=== PATIENT | male | born 1955 | race Caucasian/White ===

== ENCOUNTER 2017-04-26 22:23 | Emergency (ER) | payer SELFPAY ==
[2017-04-26 22:29] VITALS: BP 138/85; PULSE 74; TEMP 98.8; BMI 26.6
[2017-04-26] MEDS ORDERED: SILVER SULFADIAZINE 1% TOP CREAM 50 GM JAR TP ONE (22:36)
--- NOTE | 2017-04-26 22:38 | PDOC ---
History of Present Illness - General Chief Complaint: Burn Stated Complaint: RT HAND BURN Time Seen by Provider: 04/26/17 22:27 History Source: Patient Exam Limitations: No Limitations - History of Present Illness Initial Comments: 04/26/17 22:39 This is a 61-year-old male who comes in complaining of a burn to his right hand. Patient was opening a pressure cooker that had finished cooking approximately an hour prior to opening it when some of the sauce sprayed onto his hand. Patient denied any other injuries. Patient's tetanus is up-to-date. PAST MEDICAL HISTORY: no significant history PAST SURGICAL HISTORY: no significant history FAMILY HISTORY: no pertinant history SOCIAL HISTORY: Pt lives with family and is employed. MEDICATIONS: reviewed ALLERGIES: As per nursing notes Review of Systems General: No fevers or chills, no weakness, no weight loss HEENT: No change in vision. No sore throat,. No ear pain CardioVascular: No chest pain or shortness of breath Respiratory:No cough, or wheezing. Gastrointestinal: no nausea, vomitting, diarrhea or constipation, No rectal bleeding Genitourinary: No dysuria, hematuria, or frequency Musculoskeletal right hand burn Neurologic: No headache, vertigo, dizziness or loss of consciousness Psychiatric: nor depression Skin: No rashes or easy bruising Endocrine: no increased thirst or abnormal weight change Allergic: no skin or latex allergy All other systems reviewed and normal GENERAL: The patient is awake, alert, and fully oriented, in no acute distress. HEAD: Normal with no signs of trauma. EYES: Pupils equal, round and reactive to light, extraocular movements intact, sclera anicteric, conjunctiva clear. EXTREMITIES: Right hand there is a first-degree burn to the palmar surface and part of the dorsum as well as a small area of the forearm that has erythema but no blistering or no sloughing of the skin. NEUROLOGICAL: Normal speech, normal gait. grossly intact PSYCH: Normal mood, normal affect. SKIN: Warm, Dry, normal turgor, no rashes or lesions noted. Assessment and plan: This is a 61-year-old male with a first-degree burn of his right hand. Patient's hand had Silvadene applied and a wrap. Patient was discharged home and told to follow-up with his primary care doctor as needed Past History - Past Medical History Allergies/Adverse Reactions: Allergies Allergy/AdvReac Type Severity Reaction Status Date / Time No Known Allergies Allergy Unverified 04/26/17 22:24 Home Medications: Ambulatory Orders NK [No Known Home Medication] 04/26/17 COPD: No - Immunization History Immunization Up to Date: Yes - Suicide/Smoking/Psychosocial Hx Smoking History: Never smoked Have you smoked in the past 12 months: No Information on smoking cessation initiated: No Hx Alcohol Use: No Drug/Substance Use Hx: No Substance Use Type: None *Physical Exam - Vital Signs Last Vital Signs Temp Pulse Resp BP Pulse Ox 98.8 F 74 20 138/85 100 04/26/17 22:23 04/26/17 22:23 04/26/17 22:23 04/26/17 22:23 04/26/17 22:23 *DC/Admit/Observation/Transfer Diagnosis at time of Disposition: Burn, hand, first degree Qualifiers: Encounter type: initial encounter Burn of hand location: multiple sites Laterality: right Qualified Code(s): T23.191A - Burn of first degree of multiple sites of right wrist and hand, initial encounter - Discharge Dispostion Disposition: HOME Admit: No - Referrals - Patient Instructions Printed Discharge Instructions: How to Take Care of a Burn, DI for [facility] Additional Instructions: The burn appears to be primarily first-degree burn. Symptoms and discomfort should resolve overnight. Tomorrow morning U can gently wipe off the burn cream and if there is any area where the skin has come off apply some antibiotic cream to that area otherwise you can leave the dressings off. Tylenol or Motrin as needed for pain overnight. Return to the emergency department immediately with ANY new, persistent or worsening symptoms. Continue any medications as previously prescribed by your physician. You should follow up with your primary doctor as soon as possible regarding today's emergency department visit. . Please make sure your doctor reviews the results of your emergency evaluation. Thank you for coming to the Emergency Department today for your care. It was a pleasure to see you today. Please note that your evaluation is INCOMPLETE until you follow-up with your doctor. - Post Discharge Activity
== END 2017-04-26 22:47 | disposition home or self-care (01) ==
LOC: FER 22:23
DX: T23.191A Burn of first degree of multiple sites of right wrist and hand, initial encounter (principal); X10.1XXA Contact with hot food, initial encounter; Y93.G3 Activity, cooking and baking; Y92.9 Unspecified place or not applicable
CPT/HCPCS: 99281-25

== ENCOUNTER 2023-11-29 14:34 | Emergency (ER) | payer OTHER ==
[2023-11-29 14:43] VITALS: BP 146/89; PULSE 77; RESP 18; TEMP 98.7; BMI 26.6
[2023-11-29] MEDS ORDERED: DIPHTH,PERTUSS(ACELL),TET 0.5 ML DISP.SYRIN IM ONE (15:10)
[2023-11-29] MEDS: DIPHTH,PERTUSS(ACELL),TET 0.5 ML DISP.SYRIN IM ONE (15:15)
== END 2023-11-29 17:50 | disposition home or self-care (01) ==
LOC: FER 14:34
PROC: 3E0234Z Introduction of Serum, Toxoid and Vaccine into Muscle, Percutaneous Approach (ICD-10-PCS; principal; 2023-11-29)
DX: S40.212A Abrasion of left shoulder, initial encounter (principal); S80.812A Abrasion, left lower leg, initial encounter; M54.50 Low back pain, unspecified; M54.2 Cervicalgia; W10.0XXA Fall (on)(from) escalator, initial encounter; Z23 Encounter for immunization
CPT/HCPCS: 72125-TC; 72131-TC; 73030-TC-LT-FY; 90715; 99284-25